=== PATIENT | female | born 2005 | race Two or more races ===

== ENCOUNTER 2024-04-03 22:13 | Emergency (ER) | payer MEDICAID, OTHER ==
[~2024-04-03] VITALS: Ht 149.9 cm; Wt 65.0 kg
[2024-04-03 22:13] VITALS: BP 153/96; PULSE 101; RESP 20; O2SAT 99
[2024-04-04] MEDS ORDERED: ACET500T58 PO (02:23)
== END 2024-04-04 02:33 | disposition home or self-care (01) ==
LOC: ER 22:13
DX: S39.012A Strain of muscle, fascia and tendon of lower back, initial encounter (principal); Z79.899 Other long term (current) drug therapy; V43.52XA Car driver injured in collision with other type car in traffic accident, initial encounter; Y93.I9 Activity, other involving external motion; Y92.89 Other specified places as the place of occurrence of the external cause; Y99.8 Other external cause status